=== PATIENT | female | born 1990 | race Caucasian/White ===

== ENCOUNTER 2021-11-26 09:57 | Outpatient (CLI) | payer MEDICAID, SELFPAY ==
--- NOTE | 2021-11-26 10:01 | US_ITS ---
STUDY: ABDOMINAL ULTRASOUND - ELASTOGRAPHY REASON FOR VISIT: Female, 31 years old. [place] TECHNIQUE: Liver stiffness measurements were obtained on a [employer] RS 85 ultrasound machine using a CA 1-7 probe following the SRU guidelines. 3 measurements were obtained using a 2-D-SWE method. The IQR/M was 13% suggesting a quality data set. TECHNICAL QUALITY: Adequate. COMPARISON: Comparison is made with prior study done earlier today. FINDINGS: Liver: Mild fatty infiltration of the liver. Median liver stiffness measured 7 kPa. US/Elastography Parenchyma/Organ IMPRESSION: Liver stiffness measures 7 kPa compatible with F2-F3 (Mild to moderate liver fibrosis) Metavir score. Electronically Signed: Hiro Hunter MD at 12:50 EST ,
--- NOTE | 2021-11-26 10:01 | US_ITS ---
STUDY: ABDOMINAL ULTRASOUND - RIGHT UPPER QUADRANT REASON FOR VISIT: Female, 31 years old suspected [place] . Recent gastric bypass surgery. TECHNIQUE: Ultrasound evaluation of the right upper quadrant was performed with real-time and static wright-scale imaging. TECHNICAL QUALITY: Adequate. COMPARISON: None. FINDINGS: Liver: The liver measures 14.6 cm. There is increased echogenicity consistent with fatty infiltration. The bile ducts are within normal limits. There is hepatic color flow. The direction of portal flow is hepatopetal. 2 hemangiomas are seen in the right lobe of the liver. The larger measures 2.4 cm x 1.5 cm x 2.3 cm. Gallbladder: Normal distended gallbladder. The gallbladder wall measures 1 mm. There is a negative sonographic Anderson''s sign. There is no pericholecystic fluid. There are no gallstones. Small amount of sludge is seen in the gallbladder lumen. Common Bile Duct (C.B.D.): The common bile duct measures 3 mm. Pancreas: Normal size of the head, body and tail of the pancreas. There is normal echogenicity of the pancreas. There is no demonstrated pancreatic mass or cyst. Right Kidney: Normal size of the right kidney. The right kidney measures 10.17 x 5 cm x 4 cm. Normal renal cortex. The right cortex measures 1.0 cm. There is no demonstrated renal mass or cyst. There is no right hydronephrosis. US/Abdomen Limited IMPRESSION: Mild fatty fixation of the liver. 2., Hemangiomas are seen in the right lobe. Small amount of sludge is seen in the gallbladder lumen. Electronically Signed: Hiro Hunter MD at 12:48 EST ,
== END 2021-11-26 23:59 | disposition home or self-care (01) ==
LOC: US 10:00
PROVIDERS: PCP Family Medicine; Referring Provider Internal Medicine Gastroenterology; Visit Provider Internal Medicine Gastroenterology
DX: K75.81 Nonalcoholic steatohepatitis (NASH) (principal)
CPT/HCPCS: 76705; 76981

== ENCOUNTER 2021-12-16 13:53 | Outpatient (CLI) | payer MEDICAID, SELFPAY ==
[2021-12-16 14:30] LABS: Erythrocyte Sedimentation Rate 8 mm/hr (0-30)
[2021-12-16 14:45] LABS: Hemoglobin A1c 4.8 % (3.8-5.6)
[2021-12-16 15:04] LABS: CRP < 2.90 mg/L (0.0-3.0); Ferritin 16 ng/mL (8-252); LDH 177 U/L (84-246)
[2021-12-16 15:26] LABS: HIV - WCH Non-Reactive (Nonreactive)
[2021-12-19 09:37] LABS: Anti-Mitochondrial AB <20.0 Units (0.0-20.0)
[2021-12-22 00:07] LABS: Angiotensin Convert Enzyme 31 U/L (14-82); Cytoplasmic Ab (C-ANCA) <1:20 titer (Neg:<1:20); HEPATITIS B SURFACE AG Negative (Negative); Hepatitis A IgM Antibody Negative (Negative); Hepatitis B Core AB IgM Negative (Negative)
[2021-12-22 14:05] LABS: AFP, Tumor Marker 2.5 ng/mL (0.0-6.4); Anti-Smooth Muscle ABS 3 Units (0-19); Copper, Serum or Plasma 84 ug/dL (80-158); Haptoglobin 110 mg/dL (33-278); Hep C Antibodies <0.1 s/co ratio (0.0-0.9); Perinuclear Ab (P-ANCA) <1:20 titer (Neg:<1:20)
== END 2021-12-16 23:59 | disposition home or self-care (01) ==
LOC: LAB 13:54
PROVIDERS: PCP Family Medicine; Visit Provider Internal Medicine Gastroenterology
DX: K76.0 Fatty (change of) liver, not elsewhere classified (principal)
CPT/HCPCS: 36415; 80074; 82105; 82164; 82390; 82525; 82728; 83010; 83036; 83516; 83615; 85652; 86140; 86256; 86703